=== PATIENT | female | born 1960 | race Caucasian/White ===

== ENCOUNTER 2018-09-03 21:54 | Emergency (ER) | payer BC, OTHER ==
[~2018-09-03] VITALS: Ht 167.6 cm; Wt 90.7 kg
[~2018-09-03 21:54] MED LIST: ASPIR 8181 MG PO; NEXIUM20 M1 PO; NEXIUM20 MG; NEXIUM20 MG PO; SYNTHROID75 MCG PO; ZOCOR10 MG PO
--- OUTSIDE RECORDS SUMMARY | 2018-09-03 21:57 | XMS REPORT | Clinical Summary ---
Author Author [facility] Organization [facility] Address Unknown Phone Unavailable Care Team Providers Care [employer] Winder Name Role Phone Sherrie Mancia MD PCP Allergies No Known Allergies Medications End Date Status Medication Sig Dispensed Refills Start Date Active levothyroxine (SYNTHROID, TK 1 T PO 3 LEVOXYL) 88 mcg tablet QAM ON AN 7 EMPTY STOMACH Active multivitamin (THERAGRAN) Take 1 tablet 0 tablet by mouth daily. Active Problems No known active problems Encounters Care Team Description Date Type Specialty 09/03/2018 Emergency Emergency Medicine Michelle Barriga MD Screening for malignant neoplasm of breast (Primary Dx); Screening for osteoporosis 04/30/2018 Transcribe Access Orders after 09/02/2017 Family History Medical History Relation Name Comments No Known Problems Father Diabetes Mother Relation Name Status Comments Father Mother Alive Social History Date Tobacco Use Types Packs/Day Years Used Never Smoker Smokeless Tobacco: Never Used Alcohol Use Drinks/Week oz/Week Comments No Sex Assigned at Date Recorded Not on file Industry Job Start Date Occupation Not on file Not on file Not on file Travel End Travel History Travel Start No recent travel history available. Last Filed Vital Signs Time Taken Vital Sign Reading 09/03/2018 8:51 PM CDT Blood Pressure 170/80 09/03/2018 8:51 PM CDT Pulse 78 09/03/2018 8:51 PM CDT Temperature 36.8 C (98.2 F) 09/03/2018 8:51 PM CDT Respiratory Rate 18 09/03/2018 8:51 PM CDT Oxygen Saturation 97% - Inhaled Oxygen - Concentration 09/03/2018 8:49 PM CDT Weight 84.4 kg (186 lb) 09/03/2018 8:49 PM CDT Height 160 cm (5' 3") 09/03/2018 8:49 PM CDT Body Mass Index 32.95 Plan of Treatment Care Team Description Date Type Specialty Alvin Abdalla MD [address] [facility] [address] [place] [id number] 11/20/2018 Office Visit Gastroenterology Health Maintenance Due Date Last Done Comments COLONOSCOPY SCREENING 09/11/2011 SHINGLES VACCINES (#1) 09/11/2011 INFLUENZA VACCINE 09/06/2018 BREAST CANCER SCREENING 05/04/2020 05/04/2018, 03/18/2017, 03/08/2016, Additional history exists Procedures Comments Procedure Name Priority Date/Time Associated Diagnosis MAMMO BREAST SCREEN Routine 05/04/2018 Screening for malignant TOMOSYNTHESIS BILATERAL 2:50 PM CDT neoplasm of breast BONE DENSITY Routine 05/04/2018 Screening for 2:22 PM CDT osteoporosis after 09/02/2017 Results * Mammo Breast Screen Tomosynthesis Bilateral (05/04/2018 2:50 PM CDT) Specimen Narrative Performed At PROCEDURE: MAMMO BREAST SCREEN [facility] Computer aided detection was utilized for the interpretation of the digital bilateral screening mammography with tomosynthesis. COMPARISON: Prior studies dating back to 01/01/2014 DENSITY: The breast parenchyma is heterogeneously dense, decreasing the sensitivity of the study. There are benign scattered calcifications and masses in both breasts. There is no evidence of new masses, architectural distortions or grouped calcifications. IMPRESSION:No mammographic evidence of malignancy. RECOMMENDATION: Comparison with physical exam and annual screening mammography. BI-RADS 2: Benign. This facility is accredited by the [employer] for Mammography. A negative x-ray report should not delay biopsy if a dominant or clinically suspicious mass is present.Not all cancers are identified by x-ray. [id number] Performing Organization Address City/State/Zipcode Phone Number [facility] [address] [place] [address] * Bone Density (05/04/2018 2:22 PM CDT) Specimen Narrative Performed At EXAMINATION:[facility] CLINICAL HISTORY:Z13.820 Encounter for screening for osteoporosis, screening COMPARISON:03/08/2016 The results of this study expressed as bone mineral density (BMD) were as follows: AP spine (L1-L4) BMD: 1.016 g/cm2 T-Score: -1.4 Z-Score: -1.0 Percent change: -4.7 % Dual Femur (Total Mean): BMD: 0.944 g/cm2 T-Score: -0.5 Z-Score:-0.2 Percent change: +0.5 % Left femoral neck: BMD: 0.939 g/cm2 T-Score: -0.7 Z score: 0.0 Right femoral neck: BMD: 0.856 g/cm2 T-Score: -1.3 Z score: -0.6 Femur FRAX: Not applicable Risk factors: None. 10 year probability of fracture: 1.Major osteoporotic:% 2.Hip: % 3.Based on femur neck BMD Impression: 1.Bone mineral density values as above. Notes: *The world health organization (WHO) has classified the patient's T-score as follows: At or above (-1) as normal (-1) to (-2.5) as low (osteopenia) At or below (-2.5) as abnormally low (osteoporosis, increased fracture risk) For premenopausal women, men under the age 50 years, and children the WHO classification does not apply. In these individuals please assess bone mineral density with Z scores for each skeletal site examined. Z scores above -2.0: Within expected range for age. Z scores lower than -2.0:Low bone density for age. The TBS is derived from the texture of the DEXA image and has been shown to be related to bone microarchitecture and fracture risk. This data provides information independent of BMD value; is used as a complement to the data obtained from the DEXA analysis and the clinical examination. The TBS can assist the healthcare professional in assessment of fracture risk and in monitoring the effect of treatments on patient over time. [id number] Procedure Note Hm Interface, Radiology Results Incoming - 05/04/2018 3:08 PM CDT EXAMINATION: BONE DENSITY CLINICAL HISTORY: Z13.820 Encounter for screening for osteoporosis, screening COMPARISON: 03/08/2016 The results of this study expressed as bone mineral density (BMD) were as follows: AP spine (L1-L4) BMD: 1.016 g/cm2 T-Score: -1.4 Z-Score: -1.0 Percent change: -4.7 % Dual Femur (Total Mean): BMD: 0.944 g/cm2 T-Score: -0.5 Z-Score: -0.2 Percent change: +0.5 % Left femoral neck: BMD: 0.939 g/cm2 T-Score: -0.7 Z score: 0.0 Right femoral neck: BMD: 0.856 g/cm2 T-Score: -1.3 Z score: -0.6 Femur FRAX: Not applicable Risk factors: None. 10 year probability of fracture: 1. Major osteoporotic: % 2. Hip: % 3. Based on femur neck BMD Impression: 1. Bone mineral density values as above. Notes: *The world health organization (WHO) has classified the patient's T-score as follows: At or above (-1) as normal (-1) to (-2.5) as low (osteopenia) At or below (-2.5) as abnormally low (osteoporosis, increased fracture risk) For premenopausal women, men under the age 50 years, and children the WHO classification does not apply. In these individuals please assess bone mineral density with Z scores for each skeletal site examined. Z scores above -2.0: Within expected range for age. Z scores lower than -2.0: Low bone density for age. The TBS is derived from the texture of the DEXA image and has been shown to be related to bone microarchitecture and fracture risk. This data provides information independent of BMD value; is used as a complement to the data obtained from the DEXA analysis and the clinical examination. The TBS can assist the healthcare professional in assessment of fracture risk and in monitoring the effect of treatments on patient over time. [id number] Performing Organization Address City/State/Zipcode Phone Number [facility] [address] [place] [address] after 09/02/2017 Insurance Type Payer Benefit Subscriber ID Effective Phone Address Plan / Dates Group HMO [employer] xxxxxxxxxx [id number] HMO,POS,EP resent O, MC/EC Advance Directives Patient has advance care planning documents on file. For more information, winter e contact: Raymond [address] [place] [address]
[2018-09-03 23:27] LABS: BASOPHILS % 0.6 % (0.0-1.0); EOSINOPHILS # (AUTO) 0.3 (0.0-0.4); EOSINOPHILS % 4.2 % (0.0-6.0); HEMATOCRIT 41.3 % (34.2-44.1); HEMOGLOBIN 13.6 g/dL (12.0-16.0); LYMPHOCYTES # (AUTO) 1.8 (1.0-3.2); LYMPHOCYTES % 25.6 % (18.0-39.1); MEAN CORPUSCULAR HEMOGLOBIN 28.9 pg (28-32); MEAN CORPUSCULAR HGB CONC 32.9 g/dL (31-35); MEAN CORPUSCULAR VOLUME 87.9 fL (81-99); MONOCYTES # (AUTO) 0.5 (0.2-0.8); MONOCYTES % 7.5 % (4.4-11.3); NEUTROPHILS # (AUTO) 4.2 (2.1-6.9); NEUTROPHILS % 61.7 % (38.7-80.0); PLATELET COUNT 263 x10e3/uL (140-360); RED CELL DISTRIBUTION WIDTH 13.1 % (11.7-14.4)
[2018-09-03 23:49] LABS: ALANINE AMINOTRANSFERASE 28 IU/L (0-55); ALBUMIN/GLOBULIN RATIO 1.1 (0.8-2.0); ALKALINE PHOSPHATASE 59 IU/L (40-150); ANION GAP 15.2 mmol/L (8-16); BLOOD UREA NITROGEN 10 mg/dL (7-26); BUN/CREATININE RATIO 12 (6-25); CALCIUM 9.4 mg/dL (8.4-10.2); CARBON DIOXIDE 23 mmol/L (22-29); CHLORIDE 101 mmol/L (98-107); CREATININE, SERUM 0.84 mg/dL (0.57-1.11); EST GLOMERULAR FILTRATION RATE > 60 ML/MIN (60-); GLUCOSE 109 mg/dL (74-118); POTASSIUM 4.2 mmol/L (3.5-5.1); SODIUM 135 mmol/L (136-145)
[2018-09-04 00:05] LABS: BILIRUBIN,URINE NEGATIVE (NEGATIVE); CLARITY,URINE CLEAR (CLEAR); COLOR,URINE YELLOW (YELLOW); KETONES,URINE NEGATIVE (NEGATIVE); LEUKOCYTE ESTERASE ,URINE TRACE (NEGATIVE); NITRITE,URINE NEGATIVE (NEGATIVE); PROTEIN,URINE DIPSTICK NEGATIVE (NEGATIVE); URINE UROBILINOGEN 0.2 mg/dL (0.2 - 1)
[2018-09-04 00:16] LABS: BACTERIA,URINE FEW /HPF; EPITHELIAL CELLS,URINE FEW /LPF; RBC,URINE 0-5 /HPF (0-5); WBC,URINE (MAN) 21-50 /HPF (0-5)
[2018-09-04 00:17] LABS: RENAL EPITHELIAL CELLS,URINE FEW; TRANSITIONAL EPI CELLS,URINE FEW
[2018-09-04 00:42] VITALS: BP 138/77
== END 2018-09-04 00:44 | disposition home or self-care (01) ==
LOC: ER 21:54
DX: R30.0 Dysuria (principal); N30.90 Cystitis, unspecified without hematuria; E03.9 Hypothyroidism, unspecified
CPT/HCPCS: 36415; 80053; 81001; 85025; 87086; 99283